=== PATIENT | male | born 2000 | race African-American/Black ===

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

== ENCOUNTER 2021-09-29 01:19 | Emergency (ER) | payer MEDICAID ==
[2021-09-29] MEDS ORDERED: Boostrix 0.5 ML (Tdap) VIAL ONE (01:37)
== END 2021-09-29 01:54 ==
LOC: ERS 01:19
DX: S61.217A Laceration without foreign body of left little finger without damage to nail, initial encounter (principal); W26.0XXA Contact with knife, initial encounter
CPT/HCPCS: 12001; 90471; 90715